=== PATIENT | female | born 1945 | race Caucasian/White ===

== ENCOUNTER → 2019-03-23 | Outpatient (CLI) | payer MEDICARE ==
[~2019-03-23] MED LIST: AMLO10TA7 PO; ASPI-1197 PO; ATOR40TA71 PO; CHOL100044 PO; CLON1TAB12 PO; FISH1CAP49 PO; GLIM2TAB30 PO; IRBE1TAB41 PO; MULT-1203 PO; OMEP20CA12 PO
== END | disposition home or self-care (01) ==
LOC: OIH 10:49
PROVIDERS: ATTEND Internal Medicine
DX: I50.9 Heart failure, unspecified (principal)
CPT/HCPCS: 71046